=== PATIENT | male | born 1995 | race Hispanic/Latino ===

== ENCOUNTER 2018-08-28 15:30 | Inpatient (IN) | payer SELFPAY ==
[~2018-08-28] VITALS: Ht 190.5 cm; Wt 227.8 kg
[2018-08-28 16:09] LABS: BASOPHILS % 0.4 % (0.0-1.0); EOSINOPHILS # (AUTO) 0.5 (0.0-0.4); EOSINOPHILS % 4.9 % (0.0-6.0); HEMATOCRIT 45.9 % (38.2-49.6); HEMOGLOBIN 15.4 g/dL (14.0-18.0); LYMPHOCYTES # (AUTO) 2.3 (1.0-3.2); LYMPHOCYTES % 24.8 % (18.0-39.1); MEAN CORPUSCULAR HEMOGLOBIN 28.2 pg (28-32); MEAN CORPUSCULAR HGB CONC 33.6 g/dL (31-35); MEAN CORPUSCULAR VOLUME 83.9 fL (81-99); MONOCYTES # (AUTO) 0.5 (0.2-0.8); MONOCYTES % 5.2 % (4.4-11.3); NEUTROPHILS # (AUTO) 5.9 (2.1-6.9); NEUTROPHILS % 64.4 % (38.7-80.0); PLATELET COUNT 283 x10e3/uL (140-360); RED BLOOD COUNT 5.47 x10e6/uL (4.3-5.7); RED CELL DISTRIBUTION WIDTH 12.6 % (11.7-14.4)
[2018-08-28 16:23] LABS: ALANINE AMINOTRANSFERASE 106 IU/L (0-55); ALBUMIN 4.1 g/dL (3.5-5.0); ALBUMIN/GLOBULIN RATIO 1.1 (0.8-2.0); ALKALINE PHOSPHATASE 116 IU/L (40-150); ANION GAP 19.1 mmol/L (8-16); BLOOD UREA NITROGEN 13 mg/dL (7-26); BUN/CREATININE RATIO 14 (6-25); CALCIUM 9.5 mg/dL (8.4-10.2); CARBON DIOXIDE 23 mmol/L (22-29); CHLORIDE 95 mmol/L (98-107); CREATININE, SERUM 0.96 mg/dL (0.72-1.25); EST GLOMERULAR FILTRATION RATE > 60 ML/MIN (60-); POTASSIUM 4.1 mmol/L (3.5-5.1); SODIUM 133 mmol/L (136-145)
[2018-08-28 16:24] LABS: GLUCOSE 533 mg/dL (74-118)
[2018-08-28 16:38] LABS: ABG HCO3 25 mmol/L (23-28); ABG PCO2 42 mmHg (41-51); ABG PH 7.38 (7.31-7.41); ABG PO2 68 mmHg (80-105)
[2018-08-28 16:42] LABS: BILIRUBIN,URINE NEGATIVE (NEGATIVE); CLARITY,URINE CLEAR (CLEAR); COLOR,URINE YELLOW (YELLOW); KETONES,URINE 1+ (NEGATIVE); LEUKOCYTE ESTERASE ,URINE NEGATIVE (NEGATIVE); NITRITE,URINE NEGATIVE (NEGATIVE); PROTEIN,URINE DIPSTICK 1+ (NEGATIVE); URINE UROBILINOGEN 0.2 mg/dL (0.2 - 1)
[2018-08-28] MEDS ORDERED: SODIUM CHLORIDE 0.9% 1000ML 1,000 ML IV SCH (16:45)
[2018-08-28] MEDS ORDERED: INSULIN REGULAR, HUMAN 100 UNIT/1 ML 3ML VIAL IV ONE (16:45)
[2018-08-28 16:53] LABS: BACTERIA,URINE MODERATE /HPF; EPITHELIAL CELLS,URINE FEW /LPF; RBC,URINE 0-5 /HPF (0-5)
[2018-08-28] MEDS: SODIUM CHLORIDE 0.9% 1000ML 2,000 ML IV SCH ×2 (17:59→18:31)
[2018-08-28] MEDS ORDERED: ONDANSETRON HCL INJ 2MG/ML 2ML 2 MG/ML VIAL IV PRN (18:00)
[2018-08-28] MEDS ORDERED: ENALAPRILAT IV INJ 1.25 MG/ML VIAL IV PRN (18:00)
[2018-08-28] MEDS ORDERED: DEXTROSE 50% SYRINGE 50 ML IV PRN (18:00)
[2018-08-28] MEDS ORDERED: INSULIN REGULAR, HUMAN 100 UNIT/1 ML 3ML VIAL IV NR (18:00)
--- NOTE | 2018-08-28 18:01 | NUR ---
PATIENT BROUGHT BACK INTO TRIAGE FOR RE-EVALUATION. DR. EASTON SPOKE WITH HIM TO LET HIM KNOW HE IS BEING ADMITTED
[2018-08-28 18:09] LABS: CHOL/HDL RATIO 4.6 (3.9-4.7)
[2018-08-28] MEDS ORDERED: ENALAPRILAT IV INJ 1.25 MG/ML VIAL IV ONE (18:15)
[2018-08-28] MEDS: SODIUM CHLORIDE 0.9% 1000ML 1,000 ML IV SCH (19:09)
[2018-08-28] MEDS ORDERED: INSULIN REGULAR, HUMAN 100 UNIT/1 ML 3ML VIAL SQ NR (21:45)
[2018-08-28] MEDS: INSULIN REGULAR, HUMAN 100 UNIT/1 ML 3ML VIAL SQ SCH ×2 (22:15→22:16)
[2018-08-28] MEDS ORDERED: XANAX0.5 MG PO (23:12)
[2018-08-28] MEDS ORDERED: ADDERALL 20 MG20 MG PO (23:12)
[2018-08-28] MEDS ORDERED: SERTRALINE HCL100 MG PO (23:12)
[2018-08-28] MEDS ORDERED: TRAZODONE HCL50 MG PO (23:12)
[2018-08-29] MEDS: SODIUM CHLORIDE 0.9% 1000ML 1,000 ML IV SCH (02:50)
[2018-08-29 05:21] LABS: BASOPHILS % 0.5 % (0.0-1.0); EOSINOPHILS # (AUTO) 0.5 (0.0-0.4); EOSINOPHILS % 6.3 % (0.0-6.0); HEMATOCRIT 40.7 % (38.2-49.6); HEMOGLOBIN 13.4 g/dL (14.0-18.0); LYMPHOCYTES # (AUTO) 2.4 (1.0-3.2); LYMPHOCYTES % 32.8 % (18.0-39.1); MEAN CORPUSCULAR HEMOGLOBIN 28.5 pg (28-32); MEAN CORPUSCULAR HGB CONC 32.9 g/dL (31-35); MEAN CORPUSCULAR VOLUME 86.4 fL (81-99); MONOCYTES # (AUTO) 0.6 (0.2-0.8); MONOCYTES % 7.5 % (4.4-11.3); NEUTROPHILS # (AUTO) 3.9 (2.1-6.9); NEUTROPHILS % 52.6 % (38.7-80.0); PLATELET COUNT 232 x10e3/uL (140-360); RED BLOOD COUNT 4.71 x10e6/uL (4.3-5.7); RED CELL DISTRIBUTION WIDTH 12.9 % (11.7-14.4)
[2018-08-29 05:44] LABS: ALANINE AMINOTRANSFERASE 80 IU/L (0-55); ALBUMIN 3.2 g/dL (3.5-5.0); ALBUMIN/GLOBULIN RATIO 1.1 (0.8-2.0); ALKALINE PHOSPHATASE 89 IU/L (40-150); ANION GAP 14.5 mmol/L (8-16); BLOOD UREA NITROGEN 11 mg/dL (7-26); BUN/CREATININE RATIO 16 (6-25); CALCIUM 8.1 mg/dL (8.4-10.2); CARBON DIOXIDE 23 mmol/L (22-29); CHLORIDE 101 mmol/L (98-107); CREATININE, SERUM 0.69 mg/dL (0.72-1.25); EST GLOMERULAR FILTRATION RATE > 60 ML/MIN (60-); GLUCOSE 273 mg/dL (74-118); MAGNESIUM 2.1 MG/DL (1.3-2.1); PHOSPHORUS 2.8 MG/DL (2.3-4.7); POTASSIUM 3.5 mmol/L (3.5-5.1); SODIUM 135 mmol/L (136-145)
--- NOTE | 2018-08-29 06:59 | NUR ---
RECEIVED REPORT FROM LESA OCHOA.
--- NOTE | 2018-08-29 08:55 | NUR ---
DR ABBASI HERE WITH PT FOR EVALUATION.
[2018-08-29] MEDS ORDERED: ASPIRIN 81 MG ENTERIC COATED PO SCH (09:00)
--- NOTE | 2018-08-29 09:00 | NUR ---
EATING ADA DIET WELL; DR ABBASI TO INPUT A SLIDING SCALE; PT AWARE AND UNDERSTANDS WHAT THAT IS.
[2018-08-29] MEDS ORDERED: METFORMIN HCL 500 MG TAB PO SCH (09:15)
[2018-08-29] MEDS: INSULIN REGULAR, HUMAN 100 UNIT/1 ML 3ML VIAL SQ SCH (09:28)
[2018-08-29] MEDS: GLIPIZIDE 5 MG TAB ER PO SCH (10:55)
[2018-08-29 13:00] VITALS: BP 168/90
[2018-08-29 14:09] VITALS: BP 168/90
--- NOTE | 2018-08-29 14:15 | NUR ---
PATIENT ARRIVED TO ROOM 293 AROUND 1400, HE IS IN STABLE CONDITION. ADMISSION HISTORY AND INITIAL PHYSICAL ASSESSMENT COMPLETED. PATIENT ORIENTED TO ROOM AND POLICIES. PATIENT REFUSED FLU VACCINE. BED IN THE LOWEST POSITION. CALL LIGHT WITHIN REACH.
[2018-08-29 14:32] LABS: CHOL/HDL RATIO 4.8 (3.9-4.7)
[2018-08-29 14:37] VITALS: BP 168/90
--- NOTE | 2018-08-29 14:40 | Consultation ---
DATE OF CONSULTATION: August 29, 2018 ENDOCRINE CONSULTATION This is a patient of Dr. Dow. Thank you very much for referring this patient. This is a 22-year-old gentleman who is referred to me for evaluation of uncontrolled diabetes mellitus. Patient is not a known diabetic. He came to the emergency room because of polyuria, polydipsia, dryness of mouth and weight loss. The patient has very strong family history of diabetes mellitus. In the emergency room, his blood sugar was found to be 533 and his anion gap was 19.1. His hemoglobin A1c is 11.1. PHYSICAL EXAMINATION GENERAL: Today, the patient is alert and awake. He is morbidly obese. He has acanthosis nigricans skin lesions on his neck. VITALS: His heart rate is around 100. His blood pressure is 140/80 mmHg. HEENT: Examination is essentially unremarkable. Thyroid is palpable. Clinically, he is near euthyroid. CHEST: Bilateral vesicular breathing. No rales. CARDIAC: First and 2nd heart sounds. There is no 3rd or 4th heart sound. Ejection systolic murmur, grade 2/6. EXTREMITIES: Patient has evidence of diabetic sensory neuropathy in both lower extremities. CLINICAL IMPRESSION 1. New-onset diabetes mellitus, type 2, uncontrolled with complications. 2. Mild hypertension. 3. Morbid obesity. The plan at this time is to continue the insulin and IV fluids. Since the patient does not have any medical insurance, the option is to put him on glipizide and a combination of insulin and glipizide for now. Thanks for referring this patient. I will be following this patient with you. Job#: [id number]
--- NOTE | 2018-08-29 15:40 | NUR ---
Met with pt. 22 yr independent male sitting up on couch. Discussed self pay status, and community resources. Gave him community resource packet and discussed [facility] [address] Card application in packet. He verbalized understanding and voiced appreciation.
[2018-08-29 15:58] VITALS: BP 122/69
[2018-08-29] MEDS: INSULIN LISPRO 100 UNIT/1 ML 3ML VIAL SQ SCH ×2 (16:19→21:30)
[2018-08-29 19:33] VITALS: BP 145/81
--- NOTE | 2018-08-29 19:37 | NUR ---
REPORT GIVEN TO ONCOMING NURSE. PATIENT IS RESTING IN BED. NO S/S OF DISTRESS NOTED, RESPIRATIONS EVEN AND UNLABORED, NO SOB. CALL LIGHT WITHIN REACH. BED IN THE LOWEST POSITION.
--- NOTE | 2018-08-29 19:37 | NUR ---
RECEIVED PATIENT RESTING IN BED. NO S/S OF DISTRESS NOTED, NO SOB NOTED. CALL LIGHT WITHIN REACH. BED IN THE LOWEST POSITION. Addendum: 08/29/18 at 1941 by NORA WESTBROOK RN WRONG ENTRY
[2018-08-29] MEDS ORDERED: INSULIN GLARGINE 100 UNITS/ML ML SC SCH (21:00)
[2018-08-29 22:59] VITALS: BP 145/81
[2018-08-30 00:25] VITALS: BP 149/98
[2018-08-30 04:40] VITALS: BP 115/75
[2018-08-30 08:33] VITALS: BP 132/66
[2018-08-30] MEDS: INSULIN LISPRO 100 UNIT/1 ML 3ML VIAL SQ SCH ×2 (08:53→12:32)
[2018-08-30] MEDS: GLIPIZIDE 5 MG TAB ER PO SCH (08:53)
[2018-08-30 08:54] VITALS: BP 132/66
--- NOTE | 2018-08-30 08:54 | NUR ---
Pt received resting in bed. Pt oriented to staff and surroundings. All meds given as ordered. Call domínguez within reach. Pt given handout, and verbal education regarding DM, diet, and exercise. Emotional support given. Will monitor
--- NOTE | 2018-08-30 10:05 | Discharge Summary ---
FINAL DIAGNOSES 1. Diabetes, type 2. Glycohemoglobin A1c of 11.1. 2. Morbidly obese. 3. Noncompliance to diet and diabetes treatment. SUMMARY: Patient is a 22-year-old male with diabetes diagnosed recently. The patient does not follow up with his doctor for management. He came to the hospital with a high blood sugar. The patient's glycohemoglobin A1c is over 10. The patient is stable. Discharged home with Glucotrol XL 10 mg daily, Metformin 100 mg b.i.d., Humulin-N 20 units twice a day. Insulin syringes, glucometer, test strips, and lancets. The patient does go to a medical clinic. Advised the patient to follow up for his diabetic management. Job#: [id number] KARLOS
[2018-08-30 12:45] VITALS: BP 168/77
--- NOTE | 2018-08-30 12:47 | NUR ---
Nutrition Screen Note RD Recommendation for Physician: - Continue 1800 ADA diet - Pt educated on DM diet and education materials provided - Recommend outpatient CDE appointment upon discharge Plan of Care: RD following, monitoring for tolerance and adequacy Nutrition reason for involvement: MD Consult Primary Diagnose(s): New onset DM, HTN PMH: None listed Ht: 75 in Wt: 502.19 lb BMI: 62.8 kg/m2 IBW: [address] Assessment: (08/30) 22 YOM admitted for polyuria and polydipsia found to have new onset DM with BG of 533. Pt seen per MD consult for diet education. Pt educated on DM nutrition therapy emphasizing CHO sources and serving sizes, meal planning, substitutions, and foods to avoid. Pt educated on heart healthy nutrition therapy as well emphasizing lean protein, low fat dairy, vegetables, and whole grains. Pt verbalized understanding, diet education handouts provided. Chart reviewed. Labs and meds noted, A1C 11.1 and pt on lispro, lantus, and glipizide. Current Diet: 1800 ADA Malnutrition Evaluation (08/30/18) The patient does not meet criteria for a specified degree of malnutrition at this time. Will re-evaluate at follow-up as appropriate. Diet Education Needs Assessment: Diet education indicated, pt receptive. Learner(s): pt Barriers: none identified Cultural/Language Modifications: none Readiness: ready Method: handouts, discussion Topics: Type 2 DM nutrition therapy, CHO sources, CHO serving sizes, heart healthy nutrition therapy Understanding/Compliance: fair Nutrition Care Level: Low Signed: Gabbi Bucio RD, LD, [facility]
[2018-08-30] MEDS ORDERED: GLIPIZIDE ER5 MG PO (14:14)
[2018-08-30] MEDS ORDERED: METFORMIN HCL500 MG PO (14:14)
[2018-08-30] MEDS ORDERED: NOVOLIN N100 UNIT/1 SC (14:17)
--- NOTE | 2018-08-30 14:50 | NUR ---
Pt given discharge instructions regarding meds, diet, activities,insulin administration, and follow up with PCP. Pt verbalized understanding of teaching. Refused wheelchair. Escorted off unit by tech
== END 2018-08-30 14:51 | disposition home or self-care (01) | DRG 638 ==
LOC: ER 15:30 → ERHOLD 19:40 → MED/SURG3 08-29 14:15
PROVIDERS: ADMIT Internal Medicine; ATTEND Internal Medicine
DX: E11.10 Type 2 diabetes mellitus with ketoacidosis without coma (principal); Z68.44 Body mass index [BMI] 60.0-69.9, adult; E66.01 Morbid (severe) obesity due to excess calories; I10 Essential (primary) hypertension; E86.0 Dehydration; E78.5 Hyperlipidemia, unspecified; Z83.3 Family history of diabetes mellitus; Z91.11 Patient's noncompliance with dietary regimen; Z91.19 Patient's noncompliance with other medical treatment and regimen
CPT/HCPCS: 36415; 36600; 80053; 80061; 81001; 82805; 82948; 83036; 83735; 84100; 85025; 93005; 99284; J1815; J2405; J7030